=== PATIENT | female | born 1985 | race Caucasian/White ===

== ENCOUNTER 2023-06-17 13:46 | Emergency (ER) | payer MEDICAID, OTHER ==
[~2023-06-17] VITALS: Ht 162.6 cm; Wt 56.9 kg
[2023-06-17] MEDS ORDERED: NEOM10DR11 EACH EAR (14:24)
[2023-06-17] MEDS ORDERED: AMOX-430 PO (14:24)
[2023-06-17 14:31] VITALS: BP 93/66; TEMP 98.1; O2SAT 100
== END 2023-06-17 14:32 | disposition home or self-care (01) ==
LOC: ER 13:46
DX: H66.91 Otitis media, unspecified, right ear (principal)